=== PATIENT | male | born 1940 | race Caucasian/White ===

== ENCOUNTER 2020-07-19 20:36 | Emergency (ER) | payer MEDICARE, OTHER ==
[~2020-07-19] VITALS: Ht 177.8 cm; Wt 75.0 kg
[2020-07-19] MEDS ORDERED: LORazepam 2 MG/ML, 1ML IV ONE (20:54)
--- NOTE | 2020-07-19 20:55 | NUR ---
pt a/ox4, all needs in reach, call light in reach, pt states he feels weak, usually walks around on his own but was not able to today, pt had tremors/rigor at home, did not lose conciousness, 50MG IV benadryl given to pt my EMS in the feild. PT states he did not take his diltiazem today. Pt flew in from [place] this morning and has been experiencing above symptoms since.
[2020-07-19] MEDS ORDERED: SODIUM CHLORIDE 0.9% 1,000ML IVBOLUS ONE (21:00)
[2020-07-19] MEDS ORDERED: SODIUM CHLORIDE FLUSH 10ML SYR IVF ONE (21:00)
[2020-07-19] MEDS ORDERED: LORazepam 2 MG/ML, 1ML ONE (21:03)
[2020-07-19 21:38] LABS: ALBUMIN 3.3 g/dL (3.4-5.0); ANION GAP 6 mmol/L (5-15); CALCIUM 8.5 mg/dL (8.5-10.1); CHLORIDE 110 mmol/L (98-107); CREATININE 1.26 mg/dL (0.7-1.3)
[2020-07-19 21:41] LABS: TROPONIN I < 0.015 ng/mL (0.000-0.045)
[2020-07-19 21:42] LABS: BASOPHILS % (AUTO) 0 % (0-1); EOSINOPHILS % (AUTO) 0 % (1-7); LYMPHOCYTES % (AUTO) 15 % (22-44); MEAN CORPUSCULAR HEMOGLOBIN 32.2 pg (27.5-34.5); MEAN CORPUSCULAR HGB CONC 33.4 g/dL (33.2-36.2); MEAN PLATELET VOLUME 9.2 fL (7.4-10.4); MONOCYTES % (AUTO) 11 % (2-9); NEUTROPHILS % (AUTO) 73 % (42-75); PLATELET COUNT 279 x10^3/uL (130-400); RED CELL DISTRIBUTION WIDTH 15.6 % (9.4-14.8)
--- NOTE | 2020-07-19 21:44 | NUR ---
pt assisted to stand and use bedside urinal, pt complained of right sided flank pain rating it at a 7 out of 10. notified, pt laying in bed, a/ox4, all needs in reach, call light in reach, side rails up and bed in low position with wheel locks engaged.
[2020-07-19 21:45] LABS: MD NO
[2020-07-19 22:02] LABS: MICROSCOPIC NOT IND
[2020-07-19] MEDS ORDERED: APIXABAN 2.5 MG TABLET PO STA (22:33)
[2020-07-19] MEDS ORDERED: DILTIAZEM 60 MG TABLET PO STA (22:33)
[2020-07-19] MEDS ORDERED: PLEASE ENTER ALLERGIES MC SCH (23:00)
[2020-07-19] MEDS ORDERED: APIXABAN 5 MG TABLET ONE (23:14)
--- NOTE | 2020-07-19 23:35 | NUR ---
pt stood up on his own and stated he feels better, pt is to be discharged but cannot remember his sons phone number, pt a/ox4, all needs in reach, call light in reach, NAD
[2020-07-20 00:57] VITALS: BP 125/84
== END 2020-07-20 01:04 | disposition home or self-care (01) ==
LOC: ED 21:06
DX: I48.20 Chronic atrial fibrillation, unspecified (principal); R00.2 Palpitations; F41.1 Generalized anxiety disorder; R07.9 Chest pain, unspecified; I10 Essential (primary) hypertension; M10.9 Gout, unspecified; R00.0 Tachycardia, unspecified; Z87.891 Personal history of nicotine dependence
CPT/HCPCS: 36415; 71045; 80048; 81003; 82040; 83605; 84484; 85025; 87040; 93005; 96361; 96374; 99285; J2060; J7030; 96375